=== PATIENT | female | born 1950 | race Caucasian/White ===

== ENCOUNTER 2021-05-30 05:30 | Day surgery (SDC) | payer MEDICARE ==
[2021-05-24 16:04] LABS: BASOPHILS # (AUTO) 0.1 X10'3 (0-0.2); BASOPHILS % (AUTO) 1.1 % (0-1); EOSINOPHILS # (AUTO) 0.1 X10'3 (0-0.9); EOSINOPHILS % (AUTO) 1.6 % (0-6); LYMPHOCYTES # (AUTO) 1.8 X10'3 (1.1-4.8); LYMPHOCYTES % (AUTO) 31.7 % (21-51); MEAN CORPUSCULAR HEMOGLOBIN 31.4 PG (27.0-31.0); MEAN CORPUSCULAR HGB CONC 33.7 g/dL (33.0-36.5); MEAN CORPUSCULAR VOLUME 93.1 FL (78-98); MEAN PLATELET VOLUME 7.8 FL (7.4-10.4); MONOCYTES # (AUTO) 0.5 X10'3 (0-0.9); NEUTROPHILS # (AUTO) 3.4 X10'3 (1.8-7.7); NEUTROPHILS % (AUTO) 57.6 % (42-75); PRE OP HEMATOCRIT 40.8 % (35.0-45.0); PRE OP HEMOGLOBIN 13.8 g/dL (12.0-16.0); PRE OP PLATELET COUNT 236 X10'3 (140-440); RED BLOOD COUNT 4.39 X10'6 (4.20-5.60); RED CELL DISTRIBUTION WIDTH 13.3 % (11.5-14.5)
[2021-05-24 16:25] LABS: ALBUMIN 3.8 G/DL (3.4-5.0); ALBUMIN/GLOBULIN RATIO 1.4 (1.1-1.5); ALKALINE PHOSPHATASE 71 IU/L (46-116); BLOOD UREA NITROGEN 14 MG/DL (7-18); BUN/CREATININE RATIO 13.9 (6.6-38.0); CALCIUM 8.9 MG/DL (8.5-10.1); CHLORIDE 106 MMOL/L (99-107); CREATININE 1.01 MG/DL (0.40-0.90); PRE OP ALT 38 U/L (30-65); PRE OP ANION GAP 9 (8-16); PRE OP AST 27 U/L (10-37); PRE OP BILIRUB, TOTAL 0.5 MG/DL (0.0-1.0); PRE OP GLUCOSE 89 MG/DL (70-104); PRE OP POTASSIUM 4.5 MMOL/L (3.4-5.1); PRE OP SODIUM 144 MMOL/L (135-145); TOTAL CARBON DIOXIDE 28.6 MMOL/L (24-32); TOTAL PROTEIN 6.5 G/DL (6.4-8.2); eGFR 55 ML/MIN
[2021-05-30] VITALS (8 sets, daily range): BP systolic 106–128; BP diastolic 56–71
[~2021-05-30] VITALS: Ht 160 cm; Wt 72.3 kg
[~2021-05-30 05:30] MED LIST: NO HOME MEDS; cefazolin/dext.iso 2gm/50ml IV ONE; famotidine 20mg tablet PO ONE; ringers solution, lacted 1,000 ML IV SCH
[2021-05-30] MEDS ORDERED: BUPIVAcaine 0.5% inj/PF 30 ML ONE (06:46)
[2021-05-30] MEDS ORDERED: LIDOcaine 1% 30ml preserv. free vial ONE (06:46)
[2021-05-30] MEDS ORDERED: fentaNYL/PF 50MCG/1 ML 2ML syringe ONE (07:36)
[2021-05-30] MEDS ORDERED: midazolam 1 mg/ML 2ml injection ONE (07:36)
[2021-05-30] MEDS ORDERED: propofol inj 20 ML IV ONE (07:56)
[2021-05-30] MEDS ORDERED: LIDOcaine 2% (20mg/ml) 5ml vial ONE (07:57)
[2021-05-30] MEDS ORDERED: rocuronium 10mg/ml inj IV ONE (07:57)
[2021-05-30] MEDS ORDERED: ondansetron/PF 4mg/2ml inj ONE (07:58)
[2021-05-30] MEDS ORDERED: BUPIVAcaine 0.5% inj/PF 30 ml vial IJ ONE (08:06)
[2021-05-30] MEDS ORDERED: morphine 2 MG/ML inj. syringe IV PRN (08:15)
[2021-05-30] MEDS ORDERED: morphine 4 MG/ML inj SYRINge IV PRN (08:15)
[2021-05-30] MEDS ORDERED: meperidine/PF 25mg/ml syringe IV PRN ×3 (08:15)
[2021-05-30] MEDS ORDERED: ringers solution, lacted 1,000 ML IV SCH (08:15)
[2021-05-30] MEDS ORDERED: proCHLORperazine 10 MG/2 ml inj IV PRN (08:15)
[2021-05-30] MEDS ORDERED: ondansetron/PF 4mg/2ml inj IV PRN (08:15)
[2021-05-30] MEDS ORDERED: meperidine/PF 25mg/ml syringe ONE (08:28)
[2021-05-30] MEDS ORDERED: acetaminophen 1,000mg/100ml IV 100 ML IV ONE (08:29)
--- NOTE | 2021-05-30 08:53 | NUR ---
Received from OR via [facility] IN STABLE CONDITION , accompanied by Anesthesiologist and GENERAL MILLING SUPERINTENDENT report given by GENERAL MILLING SUPERINTENDENT AND Anesthesiolgist. Addendum: 05/30/21 at 0907 by Brittney Patel RN Amended: Links added.
[2021-05-30] MEDS ORDERED: acetaminophen 325mg tablet PO PRN (09:20)
[2021-05-30] MEDS ORDERED: ketorolac trometh. 30mg/ml inj. IV ONE (09:20)
--- NOTE | 2021-05-30 10:13 | NUR ---
PATIENT DISCHARGED FROM PACU IN STABLE CONDITION AFTER WRITTEN AND VERBAL DISCHARGE INSTRUCTIONS GIVEN. PATIENT LEFT FACILITY VIA WHEELCHAIR WITH RN. Addendum: 05/30/21 at 1026 by Brittney Patel RN Amended: Links added.
== END 2021-05-30 10:13 | disposition home or self-care (01) ==
LOC: PAS 05:30
PROVIDERS: ATTEND Surgery
DX: R10.31 Right lower quadrant pain (principal); K66.0 Peritoneal adhesions (postprocedural) (postinfection); J45.909 Unspecified asthma, uncomplicated; Z98.890 Other specified postprocedural states; Z79.899 Other long term (current) drug therapy; Z72.89 Other problems related to lifestyle; Z82.3 Family history of stroke; Z81.8 Family history of other mental and behavioral disorders; Z80.9 Family history of malignant neoplasm, unspecified
CPT/HCPCS: 36415; 49320; 80053; 82948; 85025; 93005; J0131; J0690; J1885; J2175; J2250; J2405; J2704; J3010; J3490; J7030; J7120; S0020; U0003; U0005; Z7506; Z7508; Z7512; A4215; A4618

== ENCOUNTER 2023-04-07 01:18 | Emergency (ER) | payer MEDICARE ==
[~2023-04-07] VITALS: Ht 160 cm; Wt 70.0 kg
[~2023-04-07 01:18] MED LIST changes: -cefazolin/dext.iso 2gm/50ml IV ONE; -famotidine 20mg tablet PO ONE; -ringers solution, lacted 1,000 ML IV SCH
[2023-04-07] MEDS ORDERED: CEPH-585 PO (01:38)
[2023-04-07] MEDS ORDERED: cephalexin 250mg capsule PO ONE (01:40)
[2023-04-07 01:52] LABS: BILIRUBIN,URINE NEGATIVE (Neg); CLARITY,URINE CLOUDY (Clear); COLOR,URINE RED (Yellow); GLUCOSE, URINE NEGATIVE (Neg); KETONES,URINE NEGATIVE (Neg); LEUKOCYTE ESTERASE ,URINE LARGE (Neg); NITRITES, URINE NEGATIVE (Neg); OCCULT BLOOD,URINE LARGE (Neg); PH,URINE 5.5 (4.8-8.0); PROTEIN,URINE 100 mg/dl (Neg); UROBILINOGEN,URINE 0.2 E.U/dL (0.2-1.0)
[2023-04-07 01:53] LABS: UA COLLECTION TYPE CLN CATCH MIDSTREAM
[2023-04-07 02:01] LABS: BACTERIA,URINE 1+ /HPF (Neg); MUCUS STRANDS NONE SEEN /LPF (Neg); RBC,URINE TNTC /HPF (0-2); SQUAMOUS EPITHELIAL CELL,UR FEW /LPF (FEW); WBC,URINE TNTC /HPF (0-4)
[2023-04-07 02:02] LABS: TRANSITIONAL EPI CELLS,URINE FEW /HPF
[2023-04-07 02:17] VITALS: BP 130/74; PULSE 80; RESP 16; TEMP 98.6; O2SAT 98
== END 2023-04-07 02:18 | disposition home or self-care (01) ==
LOC: ER 01:19
DX: N39.0 Urinary tract infection, site not specified (principal); Z79.899 Other long term (current) drug therapy
CPT/HCPCS: 81001; 99283